=== PATIENT | male | born 1955 | race Caucasian/White ===

== ENCOUNTER 2018-07-13 01:53 | Inpatient (IN) | payer OTHER ==
[2018-07-13] MEDS ORDERED: NACL 0.9% 3 ML SYG IV (02:30)
[2018-07-13] MEDS ORDERED: ONDANSETRON (ODT) 4 MG TAB ODT (03:00)
[2018-07-13] MEDS: ACETAMINOPHEN 325 MG TAB PO ×2 (03:04→16:57)
[2018-07-13] MEDS: CEFTRIAXONE 1 GM/50 ML (PMX) 50 ML IVPB (03:04)
[2018-07-13 06:07] LABS: ADD MAN DIFF? NO
[2018-07-13 06:17] LABS: WHITE BLOOD COUNT 12.1 10^3/ul (4.8-10.8)
[2018-07-13 06:17] LABS: BASOPHIL # 0.1 10^3/ul (0.0-0.1); BASOPHILS % 0.4 % (0.0-2.0); EOSINOPHILS # 1.3 10^3/ul (0.0-0.5); EOSINOPHILS % 10.3 % (0.0-7.0); HEMATOCRIT 38.9 % (42.0-52.0); HEMOGLOBIN 12.4 g/dl (14.0-18.0); LYMPHOCYTES # 1.7 10^3/ul (0.8-2.9); LYMPHOCYTES % 14.1 % (15.0-51.0); MEAN CORPUSCULAR HEMOGLOBIN 24.6 pg (29.0-33.0); MEAN CORPUSCULAR HGB CONC 31.9 g/dl (32.0-37.0); MEAN CORPUSCULAR VOLUME 77.2 fl (82.0-101.0); MEAN PLATELET VOLUME 10.4 fl (7.4-10.4); MONOCYTE # 1.3 10^3/ul (0.3-0.9); MONOCYTES % 10.4 % (0.0-11.0); NEUTROPHIL # 7.7 10^3/ul (1.6-7.5); NEUTROPHILS % 63.8 % (39.0-77.0); PLATELET COUNT 383 10^3/UL (140-415); RED BLOOD COUNT 5.04 10^6/ul (4.70-6.10); RED CELL DISTRIBUTION WIDTH 14.7 % (11.5-14.5)
[2018-07-13 06:24] LABS: HEMOGLOBIN A1C 6.1 % (0-5.9)
[2018-07-13 06:40] LABS: ANION GAP 9 (5-13); BLOOD UREA NITROGEN 13 mg/dl (7-20); CALCIUM 8.2 mg/dl (8.4-10.2); CARBON DIOXIDE 27 mmol/L (21-31); CHLORIDE 107 mmol/L (97-110); CREATININE 1.13 mg/dl (0.61-1.24); Estimated GFR > 60 mL/min (>60); GLUCOSE 109 mg/dl (70-220); POTASSIUM 4.2 mmol/L (3.5-5.1); SODIUM 143 mmol/L (135-144)
[2018-07-13] MEDS: FAMOTIDINE 20 MG TAB PO ×2 (09:30→20:00)
[2018-07-13] MEDS: DOCUSATE SODIUM 100 MG CAP PO ×2 (09:30→20:00)
[2018-07-13] MEDS: ENOXAPARIN 40 MG/0.4 ML SYG SC (09:32)
[2018-07-13] MEDS: SOD CHLORIDE 0.9% 1,000 ML IV ×3 (14:24→22:00)
[2018-07-13] MEDS: LEVOFLOXACIN 750MG/D5W (PMX) 150 ML IVPB (14:31)
[2018-07-13] MEDS: NACL 3% FOR INHALATION 15 ML NEBU NEB (18:04)
[2018-07-14] MEDS: ACETAMINOPHEN 325 MG TAB PO ×3 (01:53→23:15)
[2018-07-14] MEDS: SOD CHLORIDE 0.9% 1,000 ML IV ×2 (05:25→17:03)
[2018-07-14] MEDS: DOCUSATE SODIUM 100 MG CAP PO ×2 (08:46→20:07)
[2018-07-14] MEDS: FAMOTIDINE 20 MG TAB PO ×2 (08:46→20:07)
[2018-07-14] MEDS: ENOXAPARIN 40 MG/0.4 ML SYG SC (08:52)
[2018-07-14 11:01] LABS: ADD MAN DIFF? NO
[2018-07-14 11:06] LABS: BASOPHIL # 0.1 10^3/ul (0.0-0.1); BASOPHILS % 0.4 % (0.0-2.0); EOSINOPHILS # 1.4 10^3/ul (0.0-0.5); EOSINOPHILS % 12.4 % (0.0-7.0); HEMATOCRIT 37.9 % (42.0-52.0); HEMOGLOBIN 12.1 g/dl (14.0-18.0); LYMPHOCYTES # 1.4 10^3/ul (0.8-2.9); LYMPHOCYTES % 12.4 % (15.0-51.0); MEAN CORPUSCULAR HEMOGLOBIN 24.6 pg (29.0-33.0); MEAN CORPUSCULAR HGB CONC 31.9 g/dl (32.0-37.0); MEAN PLATELET VOLUME 10.4 fl (7.4-10.4); MONOCYTES % 9.2 % (0.0-11.0); NEUTROPHIL # 7.2 10^3/ul (1.6-7.5); NEUTROPHILS % 64.2 % (39.0-77.0); PLATELET COUNT 430 10^3/UL (140-415); RED BLOOD COUNT 4.92 10^6/ul (4.70-6.10); RED CELL DISTRIBUTION WIDTH 14.5 % (11.5-14.5)
[2018-07-14 11:06] LABS: WHITE BLOOD COUNT 11.2 10^3/ul (4.8-10.8)
[2018-07-14 11:36] LABS: ANION GAP 9 (5-13); BLOOD UREA NITROGEN 13 mg/dl (7-20); CALCIUM 8.4 mg/dl (8.4-10.2); CARBON DIOXIDE 24 mmol/L (21-31); CHLORIDE 106 mmol/L (97-110); CREATININE 0.99 mg/dl (0.61-1.24); Estimated GFR > 60 mL/min (>60); GLUCOSE 134 mg/dl (70-220); SODIUM 139 mmol/L (135-144)
[2018-07-14] MEDS: LACTULOSE 30ML CUP PO (12:22)
[2018-07-14] MEDS: LEVOFLOXACIN 750MG/D5W (PMX) 150 ML IVPB (12:22)
[2018-07-14] MEDS ORDERED: VANCOMYCIN IV PER PHARMACY XX (15:30)
[2018-07-14] MEDS: NACL 3% FOR INHALATION 15 ML NEBU NEB ×2 (15:35→21:00)
[2018-07-14] MEDS: MEROPENEM 1 GM/50ML(PMX) 50 ML IVPB (17:03)
[2018-07-14] MEDS: VANCOMYCIN HCL 1.5 GM in SOD CHLORIDE 0.9% 250 ML IVPB (18:08)
[2018-07-15] MEDS: MEROPENEM 1 GM/50ML(PMX) 50 ML IVPB ×4 (00:04→21:00)
[2018-07-15] MEDS: SOD CHLORIDE 0.9% 1,000 ML IV ×2 (04:00→14:47)
[2018-07-15] MEDS ORDERED: VANCOMYCIN 1 GM 250 ML IVPB (05:00)
[2018-07-15] MEDS: VANCOMYCIN 1 GM 250 ML IVPB ×2 (06:40→17:43)
[2018-07-15] MEDS: LACTULOSE 30ML CUP PO (09:28)
[2018-07-15] MEDS: DOCUSATE SODIUM 100 MG CAP PO ×2 (09:29→20:56)
[2018-07-15] MEDS: FAMOTIDINE 20 MG TAB PO ×2 (09:30→20:57)
[2018-07-15] MEDS: ENOXAPARIN 40 MG/0.4 ML SYG SC (09:32)
[2018-07-15 11:52] LABS: NIL 0.05 IU/mL; QUANTIFERON(R)-TB GOLD NEGATIVE (NEGATIVE); TB2-NIL 0.01 IU/mL
[2018-07-15] MEDS: ACETAMINOPHEN 325 MG TAB PO ×2 (12:50→20:57)
[2018-07-15] MEDS: LEVOFLOXACIN 750MG/D5W (PMX) 150 ML IVPB (12:50)
[2018-07-16] MEDS: SOD CHLORIDE 0.9% 1,000 ML IV ×2 (04:44)
[2018-07-16] MEDS: MEROPENEM 1 GM/50ML(PMX) 50 ML IVPB ×3 (05:02→21:36)
[2018-07-16 06:10] LABS: ADD MAN DIFF? NO
[2018-07-16 06:24] LABS: BASOPHIL # 0.1 10^3/ul (0.0-0.1); EOSINOPHILS # 1.6 10^3/ul (0.0-0.5); HEMATOCRIT 39.5 % (42.0-52.0); HEMOGLOBIN 12.4 g/dl (14.0-18.0); LYMPHOCYTES # 1.6 10^3/ul (0.8-2.9); LYMPHOCYTES % 14.4 % (15.0-51.0); MEAN CORPUSCULAR HEMOGLOBIN 24.1 pg (29.0-33.0); MEAN CORPUSCULAR HGB CONC 31.4 g/dl (32.0-37.0); MEAN CORPUSCULAR VOLUME 76.8 fl (82.0-101.0); MEAN PLATELET VOLUME 10.6 fl (7.4-10.4); MONOCYTE # 1.2 10^3/ul (0.3-0.9); MONOCYTES % 10.8 % (0.0-11.0); NEUTROPHIL # 6.3 10^3/ul (1.6-7.5); NEUTROPHILS % 57.5 % (39.0-77.0); PLATELET COUNT 430 10^3/UL (140-415); RED BLOOD COUNT 5.14 10^6/ul (4.70-6.10); RED CELL DISTRIBUTION WIDTH 14.5 % (11.5-14.5)
[2018-07-16 06:24] LABS: WHITE BLOOD COUNT 10.9 10^3/ul (4.8-10.8)
[2018-07-16 06:53] LABS: BLOOD UREA NITROGEN 12 mg/dl (7-20)
[2018-07-16 06:53] LABS: CREATININE 1.04 mg/dl (0.61-1.24)
[2018-07-16 06:55] LABS: ANION GAP 8 (5-13); BLOOD UREA NITROGEN 12 mg/dl (7-20); CALCIUM 8.4 mg/dl (8.4-10.2); CARBON DIOXIDE 25 mmol/L (21-31); CHLORIDE 107 mmol/L (97-110); CREATININE 1.03 mg/dl (0.61-1.24); Estimated GFR > 60 mL/min (>60); GLUCOSE 118 mg/dl (70-220); POTASSIUM 4.4 mmol/L (3.5-5.1); SODIUM 140 mmol/L (135-144)
[2018-07-16 07:06] LABS: VANCOMYCIN,TROUGH 11.2 ug/ml (10.0-20.0)
[2018-07-16] MEDS: DOCUSATE SODIUM 100 MG CAP PO ×2 (08:24→21:32)
[2018-07-16] MEDS: FAMOTIDINE 20 MG TAB PO ×2 (08:24→21:32)
[2018-07-16] MEDS: ACETAMINOPHEN 325 MG TAB PO ×2 (08:24→18:46)
[2018-07-16] MEDS: LACTULOSE 30ML CUP PO (08:26)
[2018-07-16] MEDS: ENOXAPARIN 40 MG/0.4 ML SYG SC (08:26)
[2018-07-16] MEDS: VANCOMYCIN 1 GM 250 ML IVPB (08:59)
[2018-07-16] MEDS: LEVOFLOXACIN 750MG/D5W (PMX) 150 ML IVPB (12:19)
[2018-07-16] MEDS: IOHEXOL 300MG/ML 150 ML BTL (17:07)
[2018-07-16] MEDS: SOD CHLORIDE 0.9% 100 ML (17:07)
[2018-07-16] MEDS: VANCOMYCIN HCL 1.25 GM in SOD CHLORIDE 0.9% 250 ML IVPB (22:03)
[2018-07-17] MEDS: ACETAMINOPHEN 325 MG TAB PO ×2 (01:44→17:41)
[2018-07-17] MEDS: MEROPENEM 1 GM/50ML(PMX) 50 ML IVPB ×3 (05:33→21:37)
[2018-07-17 06:04] LABS: ADD MAN DIFF? NO
[2018-07-17 06:12] LABS: WHITE BLOOD COUNT 11.5 10^3/ul (4.8-10.8)
[2018-07-17 06:12] LABS: BASOPHIL # 0.1 10^3/ul (0.0-0.1); BASOPHILS % 0.9 % (0.0-2.0); EOSINOPHILS # 1.7 10^3/ul (0.0-0.5); EOSINOPHILS % 15.2 % (0.0-7.0); HEMATOCRIT 39.5 % (42.0-52.0); HEMOGLOBIN 12.4 g/dl (14.0-18.0); LYMPHOCYTES # 1.8 10^3/ul (0.8-2.9); LYMPHOCYTES % 15.9 % (15.0-51.0); MEAN CORPUSCULAR HEMOGLOBIN 24.1 pg (29.0-33.0); MEAN CORPUSCULAR HGB CONC 31.4 g/dl (32.0-37.0); MEAN CORPUSCULAR VOLUME 76.7 fl (82.0-101.0); MEAN PLATELET VOLUME 10.9 fl (7.4-10.4); MONOCYTE # 1.3 10^3/ul (0.3-0.9); MONOCYTES % 11.5 % (0.0-11.0); NEUTROPHIL # 6.4 10^3/ul (1.6-7.5); NEUTROPHILS % 55.3 % (39.0-77.0); PLATELET COUNT 386 10^3/UL (140-415); RED BLOOD COUNT 5.15 10^6/ul (4.70-6.10); RED CELL DISTRIBUTION WIDTH 14.6 % (11.5-14.5)
[2018-07-17] MEDS: FAMOTIDINE 20 MG TAB PO ×2 (08:47→20:32)
[2018-07-17] MEDS: VANCOMYCIN HCL 1.25 GM in SOD CHLORIDE 0.9% 250 ML IVPB ×2 (08:47→22:11)
[2018-07-17] MEDS: DOCUSATE SODIUM 100 MG CAP PO ×2 (08:47→20:31)
[2018-07-17] MEDS: ENOXAPARIN 40 MG/0.4 ML SYG SC (08:48)
[2018-07-17] MEDS: LACTULOSE 30ML CUP PO (08:48)
[2018-07-17] MEDS: LEVOFLOXACIN 750MG/D5W (PMX) 150 ML IVPB (16:03)
[2018-07-18] MEDS: MEROPENEM 1 GM/50ML(PMX) 50 ML IVPB (05:09)
[2018-07-18 08:37] LABS: INR 1.13; PROTIME 14.6 Sec (11.9-14.9); PT RATIO 1.1
[2018-07-18 08:38] LABS: PARTIAL THROMBOPLASTIN TIME 40.5 Sec (23.0-35.0)
[2018-07-18 08:51] LABS: VANCOMYCIN,TROUGH 16.1 ug/ml (10.0-20.0)
[2018-07-18] MEDS: DOCUSATE SODIUM 100 MG CAP PO (09:00)
[2018-07-18] MEDS: LACTULOSE 30ML CUP PO (09:00)
[2018-07-18] MEDS: FAMOTIDINE 20 MG TAB PO (09:21)
[2018-07-18] MEDS: VANCOMYCIN HCL 1.25 GM in SOD CHLORIDE 0.9% 250 ML IVPB (09:21)
[2018-07-18] MEDS: ENOXAPARIN 40 MG/0.4 ML SYG SC (09:22)
[2018-07-18] MEDS: LEVOFLOXACIN 750MG/D5W (PMX) 150 ML IVPB (13:22)
== END 2018-07-18 15:33 | disposition home or self-care (01) | DRG 871 ==
LOC: 5EC 01:53
DX: A41.9 Sepsis, unspecified organism (principal); J18.8 Other pneumonia, unspecified organism; C78.7 Secondary malignant neoplasm of liver and intrahepatic bile duct; C34.11 Malignant neoplasm of upper lobe, right bronchus or lung; R59.0 Localized enlarged lymph nodes; Z87.891 Personal history of nicotine dependence
CPT/HCPCS: 71250; 71260; 74177; 80048; 80202; 82565; 83036; 84520; 85025; 85610; 85730; 86480; 86635; 87040-91; 87070; 87077; 87081; 87086; 87116; 87449; 89220; 94640; 94664; 99217

== ENCOUNTER 2018-07-21 13:21 | Day surgery (SDC) | payer OTHER ==
[2018-07-21] MEDS ORDERED: ONDANSETRON 4 MG INJ IV (15:00)
[2018-07-21] MEDS ORDERED: PHENYLephrine (100 MCG/ML) 5ML SYG (15:00)
[2018-07-21] MEDS ORDERED: DESFLURANE 15 MIN (15:00)
[2018-07-21] MEDS ORDERED: HYDROmorphONE 1 MG/5 ML IV SYRINGE IV ×2 (15:00)
[2018-07-21] MEDS ORDERED: MEPERIDINE 25 MG INJ IV (15:00)
[2018-07-21] MEDS ORDERED: PROPOFOL 20 ML (16:11)
[2018-07-21] MEDS ORDERED: LIDOCAINE 1% (MDV) 20 ML INJ (16:11)
[2018-07-21] MEDS ORDERED: ROCURONIUM 50 MG INJ (16:11)
[2018-07-21] MEDS ORDERED: CEFAZOLIN 1 GM INJ (16:26)
[2018-07-21] MEDS ORDERED: ONDANSETRON 4 MG INJ (16:26)
[2018-07-21] MEDS ORDERED: SUGAMMADEX SODIUM 200 MG/2 ML VIAL IV (17:09)
== END 2018-07-21 19:00 | disposition home or self-care (01) ==
LOC: SDS 13:21
DX: I88.8 Other nonspecific lymphadenitis (principal); Z87.891 Personal history of nicotine dependence
CPT/HCPCS: 39401; 87070; 87075; 87102; 87116; 88307; 88312; 88331; 93005